=== PATIENT | female | born 1970 | race Caucasian/White ===

== ENCOUNTER 2020-06-30 14:37 | Emergency (ER) | payer MEDICARE, OTHER ==
[~2020-06-30] VITALS: Ht 149.9 cm; Wt 65.0 kg
--- NOTE | 2020-06-30 15:01 | PHYS DOC ---
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 Patient is a 49-year-old female who presents to the emergency department with mom at bedside who is the patient's primary caregiver and chief historian for HPI related to patient's history of severe MR, blind, nonverbal. Patient's mother states the patient has been tugging at her ears as she worries about a ear infection, patient's mother states the patient has had bilateral tubes placed where the left ear tube remains in place and the right ear tube has fallen out "sometime ago ". Patient's mother states the patient was seen at [facility] emergency department and was started on a Z-Davie which she completed 10 days ago, however patient's mother reports that the patient continues to tug at ears and she worries of ear infection. Patient's mother also states the patient's urine had visible blood this morning. The patient's mother states the patient had a hysterectomy when she was 16 years old, the patient does not describe pain or rate pain as she is nonverbal and only moans when she is in pain. Patient's mother denies the patient having any recent fever or chills, rashes of her skin, denies any other physical complaints or physical concerns for her daughter. Review of Systems Review of Systems 14 body systems of review of systems have been reviewed. See HPI for pertinent positives and negative responses, otherwise all other systems are negative, nonpertinent or noncontributory. Review of systems was limited related to patient's severe MR, blindness, nonverbal state. Allergies Allergies Allergies Coded Allergies Type Severity Reaction Last Updated Verified Haloperidol Lactate Allergy Unknown 07/27/13 Yes Penicillins Allergy Unknown 07/27/13 Yes acetaminophen Allergy Unknown 07/27/13 Yes aripiprazole Allergy Unknown 07/27/13 Yes codeine Allergy Unknown 07/27/13 Yes haloperidol Allergy Unknown 07/27/13 Yes hydrocodone bitartrate Allergy Unknown 07/27/13 Yes meperidine HCl Allergy Unknown 07/27/13 Yes morphine Allergy Unknown 07/27/13 Yes moxifloxacin HCl Allergy Unknown 07/27/13 Yes nitrofurantoin Allergy Unknown 07/27/13 Yes phenobarbital Allergy Unknown 07/27/13 Yes prednisone Allergy Unknown 07/27/13 Yes propoxyphene napsylate Allergy Unknown 07/27/13 Yes risperidone Allergy Unknown 07/27/13 Yes diphenhydramine HCl Adverse Reaction Unknown 07/27/13 Yes Physical Exam Physical Exam Constitutional: Well developed, well nourished, no acute distress, non-toxic appearance. HENT: Normocephalic, atraumatic, bilateral external ears normal, oropharynx moist, no oral exudates, nose normal. Right TM has a perforation at 6 o'clock position, no redness, no drainage, no purulence appreciated, left TM has auditory tube placed, no redness, no drainage, no purulence, no fluid noted behind TM. Eyes:conjunctiva normal, no discharge. Patient history of bilateral blindness. Neck: Normal range of motion, no tenderness, supple, no stridor. Cardiovascular:Heart rate regular rhythm, no murmur Lungs & Thorax: Bilateral breath sounds clear to auscultation Abdomen: Bowel sounds normal, soft, no tenderness, no masses, no pulsatile masses. Skin: Warm, dry, no erythema, no rash. Back: No tenderness, no CVA tenderness. Extremities: No tenderness, no cyanosis, no clubbing, ROM intact, no edema. Neurologic: Patient awake, nonverbal, at neurologic baseline per primary caregivers statement. Psychologic: History of severe MR, nonverbal : External exam of patient's vagina during straight cath procedure by ED nurses noted excoriated vulva with white patchy lesions consistent with yeast infection EKG EKG [] Radiology/Procedures Radiology/Procedures [] Heart Score Risk Factors: Risk Factors: DM, Current or recent (<one month) smoker, HTN, HLP, family history of CAD, obesity. Risk Scores: Risk Factors: DM, Current or recent (<one month) smoker, HTN, HLP, family h istory of CAD, obesity. Course & Med Decision Making Course & Med Decision Making Pertinent Labs and Imaging studies reviewed. (See chart for details) 49-year-old female, vital signs reviewed, presents to the emergency department with mother who is her primary caregiver. Patient's mother was concerned the patient either had an ear infection or a urinary tract infection or both. Patient was recently on a 5-day Z-Davie regimen for otitis media that was diagnosed at [facility] 10 days ago. Physical examination was not concerning for otitis infection. A catheter specimen was sent to the lab for urinalysis assay, patient's external vaginal exam was concerning for yeast infection, this is most likely from recent antibiotic use. Patient's urinalysis assay showed infection. Patient will be started on 750 mg Levaquin p.o. daily x5 days, will give 3 tablets of Diflucan 150 mg to be used on days 1 3 and 5, will prescribe clotrimazole 1% cream vaginal applicator x7 days. Discussed findings with patient's primary caregiver/mother who gave verbal understanding of diagnosis of urinary tract infection and yeast infection, a verbal understanding of discharge home instructions, antibiotic use, follow-up with primary care this week for reexamination, return ER precautions and concerns, was discharged home without incident. Dragon Disclaimer Dragon Disclaimer This electronic medical record was generated, in whole or in part, using a voice recognition dictation system. Departure Departure: Impression: Primary Impression: UTI (urinary tract infection) Additional Impression: Vulvovaginal candidiasis Disposition: 01 DC HOME SELF CARE/HOMELESS Condition: GOOD Referrals: GUERRERO PERDOMO MD (PCP) Patient Instructions: Urinary Tract Infection, Yeast Infection of the Skin, Uude-to-Obpw Additional Instructions: Please take medications as directed, for ongoing symptoms follow-up with your primary care doctor, return to the emergency department for worsening symptoms or other concerns. EMERGENCY DEPARTMENT GENERAL DISCHARGE INSTRUCTIONS Thank you for coming to [facility] (ED) today and trusting us with you care. We trust that you had a positivie experience in our Emergency Department. If you wish to speak to the department management, you may call the director at [phone]. YOUR FOLLOW UP INSTRUCTIONS ARE FOLLOWS: 1. Do you have a private Doctor? If you do not have a private doctor, please ask for a resource list of physicians or clinics that may be able to assist you with follow up care. 2. The Emergency Physician has interpreted your x-rays. The X-Ray specialist will also review them. If there is a change in the findings, you will be notified in 48 hours when at all possible. 3. A lab test or culture has been done, your results will be reviewed and you will be notified if you need a change in treatment. ADDITIONAL INSTRUCTIONS AND INFORMATION: 1. Your care today has been supervised by a physician who is specially trained in emergency care. Many problems require more than one evaluation for a complete diagnosis and treatment. We recommend that you schedule your follow up appointment as recommended to ensure complete treatment of you illness or injury. If you are unable to obtain follow up care and continue to have a problem, or if your condition worsens, we recommend that you return to the ED. 2. We are not able to safely determine your condition over the phone nor are we able to give sound medical advice over the phone. For these safety reasons, if you call for medical advice we will ask you to come to the ED for further evaluation. 3. If you have any questions regarding these discharge instructions please call the ED at [phone]. SAFETY INFORMATION: In the interest of safety, wellness, and injury prevention; we encourage you to wear your sealbelt, if you smoke; quite smoking, and we encourage family to use a protective helmet for bicycling and other sporting events that present an increased risk for head injury. IF YOUR SYMPTOMS WORSEN OR NEW SYMPTOMS DEVELOP, OR YOU HAVE CONCERNS ABOUT YOUR CONDITION; OR IF YOUR CONDITION WORSENS WHILE YOU ARE WAITING FOR YOUR FOLLOW UP APPOINTMENT; EITHER CONTACT YOUR PRIMARY CARE DOCTOR, THE PHYSICIAN WHOSE NAME AND NUMBER YOU WERE GIVEN, OR RETURN TO THE ED IMMEDIATELY. Scripts Fluconazole (DIFLUCAN) 150 Mg Tablet 150 MG PO UD for YEAST INFECTION, #3 TAB 0 Refills TAKE ONE TABLET ON DAYS ONE, THREE AND FIVE Prov: SANJUANA WEIR APRN 06/30/20 Levofloxacin (LEVOFLOXACIN) 750 Mg Tablet 1 TAB PO DAILY for UTI, #5 TAB 0 Refills Prov: SANJUANA WEIR APRN 06/30/20 Clotrimazole (CLOTRIMAZOLE-7) 45 Gm Cream.appl 45 GM VG HS for YEAST INFECTION for 7 Days, #7 EACH 0 Refills Prov: SANJUANA WEIR APRN 06/30/20 Problem Qualifiers Primary Impression: UTI (urinary tract infection) Urinary tract infection type: site unspecified Hematuria presence: with hematuria Qualified Codes: N39.0 - Urinary tract infection, site not specified; R31.9 - Hematuria, unspecified SANJUANA WEIR APRN Jun 30, 2020 15:01
[2020-06-30 15:59] LABS: BACTERIA,URINE FEW /HPF (0-FEW); BILIRUBIN,URINE NEG (NEG); CLARITY,URINE CLEAR; COLOR,URINE YELLOW; GLUCOSE,URINE NEG (NEG); NITRITE,URINE NEG (NEG); RBC,URINE >40 /HPF (0-2); SQUAMOUS EPITHELIAL CELL,UR FEW /LPF; UROBILINOGEN,URINE 0.2 mg/dL (0.2 mg/dL)
[2020-06-30] MEDS ORDERED: FLUC150T PO (16:16)
[2020-06-30] MEDS ORDERED: LEVO750T5 PO (16:16)
[2020-06-30] MEDS ORDERED: CLOT45CR VG (16:16)
[2020-06-30 16:20] VITALS: BP 125/75
== END 2020-06-30 16:20 | disposition home or self-care (01) ==
LOC: ER 14:37
DX: N39.0 Urinary tract infection, site not specified (principal); R31.9 Hematuria, unspecified; B37.3 Candidiasis of vulva and vagina; H72.91 Unspecified perforation of tympanic membrane, right ear; H54.7 Unspecified visual loss; Z88.0 Allergy status to penicillin; Z88.5 Allergy status to narcotic agent; Z88.8 Allergy status to other drugs, medicaments and biological substances
CPT/HCPCS: 81001; 87086; 99283